=== PATIENT | male | born 1975 | race Two or more races ===

== ENCOUNTER 2016-12-18 11:28 | Emergency (ER) | payer OTHER ==
[2016-12-18 11:33] VITALS: RESP 18
--- NOTE | 2016-12-18 13:00 | EDPHY ---
General Narrative: CHIEF COMPLAINT: Hand laceration HISTORY OF PRESENT ILLNESS: Patient complains of laceration to the base thumb on the right hand. This happened this morning while using a large knife. He works at a [employer] and cleaning the knife when it cut him. No numbness or tingling. Moderate pain when use. Minimal at rest. Described as a deep cut. No complaint distally. Tetanus is up-to-date less than 1 year ago. No other associated complaints or modifying factors. TIME OF INJURY: Less than 2 hours prior to arrival TETANUS STATUS: Less than a year ago MEDICAL/SURGICAL/SOCIAL HISTORY: No medical history medications. REVIEW OF SYSTEMS: Ten systems reviewed and are negative unless otherwise noted in the HPI EXAMINATION General Appearance: Alert, no distress Head: normocephalic, atraumatic Cardiovascular: Pulses normal throughout. Symmetric radial pulses. Brisk cap refill in all fingers. Neurological: A&O, sensory symmetric, strength symmetric. No wrist drop. Good strength of the thumb with adduction, abduction, opposition. Good strength of the interossei. Skin: Warm and dry, no rash. There is a 2.5 cm laceration on the right hand at the thenar eminence. No exposure of the flexor tendon. No foreign body. Neurovascular intact distally. Extremities: Nontender, no pedal edema DIFFERENTIAL DIAGNOSES: Including but not limited to laceration, complex laceration, laceration with foreign body, laceration with tendon injury MDM: 12:25 p.m. Laceration to the right hand over the thenar eminence at the base of the MCP joint. There is no exposure of the flexor tendon. No foreign body. He is neurovascular intact distally. I will anesthetize and close the wound. Tetanus is up-to-date less than 1 year ago. 12:45 p.m. Laceration has been closed without complication. He remains neuro intact with good strength of the thumb, adduction, abduction and opposition. Discharged home with wound care instructions as discussed. Work restrictions discussed. Prophylaxis with Keflex. ED precautions. Hand follow-up next week. Worker's compensation follow-up. This was all done with the use of the [facility] certified [place] language path. He is comfortable with this plan and discharged in stable condition. PROCEDURE: Laceration repair Consent: Verbal Location: Right hand, thenar eminence Length of repair: 2.5 cm Complexity: Complex Layer involvement: Single Anesthesia: Local. 1% lidocaine plain, 6mL Irrigation: Extensive Debridement: none Procedure description: Following good anesthesia, the wound was copiously irrigated. Wound bed was explored and there is no foreign body noted. Wound borders were approximated well with good hemostasis. Tolerated well without complication. Suture/Staple material: 5-0 prolene, 5 simple interrupted sutures Wound care: Routine as discussed Suture/Staple removal: 7-10 Days ED Precautions: Worsening pain. Erythema, edema, cyanosis, pallor, paresthesia or anesthesia. - History Smoking Status: Never smoked - Objective Vital Signs: Initial Vital Signs Temperature (C) 97.5 F 12/18/16 11:32 Heart Rate 83 12/18/16 11:32 Respiratory Rate 18 12/18/16 11:32 Blood Pressure 165/90 H 12/18/16 11:32 O2 Sat (%) 96 12/18/16 11:32 O2 Delivery Mode Room Air Allergies/Adverse Reactions: No Known Allergies Allergy (Unverified 12/18/16 11:35) Home Medications: Medication Instructions Recorded Cephalexin [Keflex (*)] 500 mg PO TID #30 cap 12/18/16 Medications Given: Discontinued Medications Hydrocodone Bitart/Acetaminophen ([place] 5/325mg Prepack#6) 1 btl TAKEHOME EDNOW ONE Stop: 12/18/16 13:02 Last Admin: 12/18/16 13:33 Dose: 1 btl Departure - Departure Disposition: Home, Routine, Self-Care Clinical Impression: Hand laceration Qualifiers: Encounter type: initial encounter Foreign body presence: without foreign body Laterality: right Qualified Code(s): S61.411A - Laceration without foreign body of right hand, initial encounter Condition: Good Instructions: Hydrocodone/Acetaminophen (By mouth), Care For Your Stitches (ED) , Laceration (ED) Additional Instructions: 1. Keep the dressing in place for 48 hours 2. When he removed the dressing, place a thin layer of bacitracin on it once daily for 2 more times and then stop 3. Keep the wound clean, dry and covered at all times until the sutures are removed 4. Do not return to work for the 1st 3 days 5. When you return to work, if your required to wear gloves, change these every 10 minutes 6. Antibiotics as prescribed to completion 7. Follow up with hand surgeon next week for re-evaluation 8. Return here in 10 days for suture removal Referrals: Austen Jaquez MD [Medical Doctor] - As per Instructions Stand Alone Forms: Work Limited Duty, Work Comp Follow Up, Work Excuse Prescriptions: Cephalexin [Keflex (*)] 500 mg PO TID #30 cap Print Language: [place]
[2016-12-18] MEDS ORDERED: HYDROCOD/APAP 5/325 PREPACK#6 BTL TAKEHOME ONE (13:01)
[2016-12-18 13:54] VITALS: BP 128/85; PULSE 69; TEMP 98.4; O2SAT 98
== END 2016-12-18 13:49 | disposition home or self-care (01) ==
PROC: 0HQFXZZ Repair Right Hand Skin, External Approach (ICD-10-PCS; principal; 2016-12-18)
DX: S61.411A Laceration without foreign body of right hand, initial encounter (principal); W26.0XXA Contact with knife, initial encounter; Y92.69 Other specified industrial and construction area as the place of occurrence of the external cause; Y99.8 Other external cause status; Y93.89 Activity, other specified